=== PATIENT | female | born 1990 | race American Indian/Alaskan Native ===

== ENCOUNTER 2019-09-03 01:59 | Emergency (ER) | payer OTHER ==
[2019-09-03 02:34] VITALS: BP 132/83
--- NOTE | 2019-09-03 05:18 | XRay Report ---
Right knee, 3 views INDICATION: Knee pain today FINDINGS: The joint space is maintained. There is no fracture or dislocation. No spurring or arthriti c change. No bone lesion or periostitis. No significant abnormality. IMPRESSION: Negative study Signer Name: Miguelito Jo MD Signed: 09/03/2019 5:14 AM Workstation Name: [id number]
--- NOTE | 2019-09-03 05:18 | XRay Report ---
Cervical spine, 3 views INDICATION: Neck pain today FINDINGS: On the lateral view the cervical spine is seen to the level of C7.The vertebral body height s and disc spaces are preserved. No fracture or subluxation. No spurring or arthritis. Prevertebral s oft tissues are normal. Odontoid view is unremarkable. No bony abnormality identified. Impression: Normal cervical spine series. Signer Name: Miguelito Jo MD Signed: 09/03/2019 5:13 AM Workstation Name: [id number]
[2019-09-03] MEDS ORDERED: HYDROcodone/ACETAMINOPHEN 10-325MG TAB PO ONE (07:12)
[2019-09-03] MEDS ORDERED: LIDOCAINE (1%) 10 MG/1 ML VIAL 20 ML MDV INFILTRATI ONE (07:13)
[2019-09-03] MEDS ORDERED: TETANUS,DIPH,PERTUSS(ACELL) VACCINE 0.5 ML SYRINGE IM ONE (07:13)
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
== END 2019-09-03 08:28 | disposition home or self-care (01) ==
LOC: ED 01:59
DX: S86.911A Strain of unspecified muscle(s) and tendon(s) at lower leg level, right leg, initial encounter (principal); S81.011A Laceration without foreign body, right knee, initial encounter; S00.511A Abrasion of lip, initial encounter; S13.4XXA Sprain of ligaments of cervical spine, initial encounter; E78.00 Pure hypercholesterolemia, unspecified; Z87.891 Personal history of nicotine dependence; Z79.899 Other long term (current) drug therapy; V89.2XXA Person injured in unspecified motor-vehicle accident, traffic, initial encounter; Y93.89 Activity, other specified; Y92.410 Unspecified street and highway as the place of occurrence of the external cause; Y99.8 Other external cause status
CPT/HCPCS: 72040; 90471; 90715

== ENCOUNTER 2019-09-14 17:09 | Emergency (ER) | payer OTHER | END 2019-09-14 20:07 | disposition left against medical advice (07) | LOC: ED 17:09 | DX: Z48.00 Encounter for change or removal of nonsurgical wound dressing (principal); Z53.21 Procedure and treatment not carried out due to patient leaving prior to being seen by health care provider ==

== ENCOUNTER 2022-03-07 10:39 | Emergency (ER) | payer OTHER ==
[2022-03-07] MEDS ORDERED: KETOROLAC 60 MG/2 ML INJ IM ONE (16:45)
[2022-03-07] MEDS ORDERED: dexAMETHasone 20 MG/5 ML VIAL IM ONE (16:46)
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
--- NOTE | 2022-03-07 17:21 | XRay Report ---
Right shoulder 3 views INDICATION: Shoulder pain FINDINGS: Glenohumeral joint and AC joint appear normal. No acute fracture dislocation. Signer Name: Rishabh Hollis MD Signed: 03/07/2022 5:17 PM Workstation Name: [id number]
[2022-03-07 17:54] VITALS: BP 120/80
== END 2022-03-07 17:51 | disposition home or self-care (01) ==
LOC: ED 10:39
DX: M25.511 Pain in right shoulder (principal); Z87.891 Personal history of nicotine dependence
CPT/HCPCS: 73030; 96372; 99283; J1100; J1885